=== PATIENT | male | born 1935 | race Caucasian/White ===

== ENCOUNTER 2020-10-19 11:07 | Inpatient (IN) | payer MEDICARE, MEDICAID ==
[~2020-10-19] VITALS: Ht 170.2 cm; Wt 80.0 kg
[2020-10-19] MEDS ORDERED: LIDOCAINE HCL/EPINEPHRINE 1%-EPI 1:100,000 50 ML VIAL INFIL ONE (11:30)
[2020-10-19] MEDS ORDERED: ONDANSETRON HCL 4MG/2ML INJ IV ONE (11:30)
[2020-10-19] MEDS ORDERED: TETANUS, DIPHTHERIA, PERTUSSIS VAC/PF 0.5ML (>7YR OLD) IM ONE (11:30)
[2020-10-19] MEDS ORDERED: LIDOCAINE HCL 1% 20ML VIAL (Pyxis) INJ INFIL ONE (11:30)
[2020-10-19] MEDS ORDERED: FENTANYL CITRATE/PF 50MCG/ML 2ML VIAL IV ONE ×2 (11:30→11:45)
[2020-10-19 12:09] LABS: BASOPHILS % 0.8 % (0.0-2.0); EOSINOPHILS % 5.9 % (0.0-5.0); HEMATOCRIT. 37.6 % (42.0-52.0); HEMOGLOBIN. 12.8 g/dL (14.0-18.0); LYMPHOCYTES % 14.8 % (20.0-50.0); MEAN CORPUSCULAR HEMOGLOBIN 29.3 pg (28.0-32.0); MEAN CORPUSCULAR VOLUME 86.3 fL (80.0-94.0); MEAN PLATELET VOLUME 8.9 fl (7.4-10.4); MONOCYTES % 7.6 % (2.0-8.0); NEUTROPHILS % 70.9 % (40.0-76.0); PLATELET 194 x1000/uL (130-400); RED BLOOD CELL COUNT 4.36 mill/uL (4.7-6.1); RED CELL DISTRIBUTION WIDTH 16.5 % (11.6-14.6)
[2020-10-19 12:15] LABS: CHLORIDE 109 mEq/L (98-107)
[2020-10-19 12:18] LABS: INR 1.2
[2020-10-19 12:19] LABS: ETHANOL BLOOD < 10 mg/dL
[2020-10-19 14:14] LABS: CLARITY URINE CLEAR (CLEAR); COLOR URINE YELLOW (YELLOW); KETONES URINE NEGATIVE (NEGATIVE); LEUKOCYTE ESTERASE URINE NEGATIVE (NEGATIVE); NITRITE URINE NEGATIVE (NEGATIVE); OCCULT BLOOD URINE NEGATIVE (NEGATIVE); PROTEIN URINE 1+ (NEGATIVE); SPECIFIC GRAVITY URINE 1.012 (1.005-1.030)
[2020-10-19 14:34] LABS: *AMPHETAMINES SCREEN URINE NEGATIVE (NEGATIVE); *BARBITURATES SCREEN URINE NEGATIVE (NEGATIVE); CANNABINOID URINE SCREEN NEGATIVE (NEGATIVE); OPIATES URINE SCREEN NEGATIVE (NEGATIVE); PHENCYCLIDINE URINE SCREEN NEGATIVE (NEGATIVE)
[2020-10-19 14:35] LABS: *BENZODIAZEPINES SCREEN URINE NEGATIVE (NEGATIVE); *COCAINE SCREEN URINE NEGATIVE (NEGATIVE); METHADONE URINE SCREEN NEGATIVE (NEGATIVE)
[2020-10-19 21:14] VITALS: BP 164/96
== END 2020-10-19 23:43 | disposition left against medical advice (07) | DRG 563 ==
LOC: ER 11:07 → MICUSO 17:50 → 7EST 20:16
PROVIDERS: ATTEND Internal Medicine
PROC: 0RSJXZZ Reposition Right Shoulder Joint, External Approach (ICD-10-PCS; principal; 2020-10-19)
PROC: 0HQMXZZ Repair Right Foot Skin, External Approach (ICD-10-PCS; 2020-10-19)
DX: S43.004A Unspecified dislocation of right shoulder joint, initial encounter (principal); E11.9 Type 2 diabetes mellitus without complications; E78.00 Pure hypercholesterolemia, unspecified; I11.0 Hypertensive heart disease with heart failure; I50.9 Heart failure, unspecified; Z53.29 Procedure and treatment not carried out because of patient's decision for other reasons; X58.XXXA Exposure to other specified factors, initial encounter; Y93.89 Activity, other specified; Y92.89 Other specified places as the place of occurrence of the external cause; Y99.8 Other external cause status; S91.119A Laceration without foreign body of unspecified toe without damage to nail, initial encounter; R53.1 Weakness; R55 Syncope and collapse
CPT/HCPCS: 36415; 71045; 73030; 73630; 80053; 80305; 80320; 81003; 83605; 83880; 84484; 85025; 90715; 93005; 99285; A4565; J2405; J3010; J3490; G0480